=== PATIENT | female | born 1985 | race Caucasian/White ===

== ENCOUNTER 2022-05-01 02:03 | Emergency (ER) | payer MEDICAID ==
[~2022-05-01] VITALS: Ht 152.4 cm; Wt 50.0 kg
[2022-05-01] MEDS ORDERED: diphenhydrAMINE 25mg capsule PO ONE (07:25)
[2022-05-01] MEDS ORDERED: predniSONE 20 mg tablet PO ONE (07:25)
[2022-05-01] MEDS ORDERED: famotidine 20mg tablet PO ONE (07:25)
[2022-05-01 07:50] VITALS: BP 124/74
[2022-05-01] MEDS ORDERED: EPIN0.3P3 IM (09:49)
[2022-05-01] MEDS ORDERED: PRED20TA PO (09:49)
== END 2022-05-01 10:04 | disposition home or self-care (01) ==
LOC: ER 02:04
DX: T78.1XXA Other adverse food reactions, not elsewhere classified, initial encounter (principal); L50.0 Allergic urticaria; R21 Rash and other nonspecific skin eruption; F17.200 Nicotine dependence, unspecified, uncomplicated; Z79.899 Other long term (current) drug therapy
CPT/HCPCS: 99284; J7512; Q0163

== ENCOUNTER 2023-12-12 13:50 | Emergency (ER) | payer MEDICAID ==
[~2023-12-12] VITALS: Ht 157.5 cm; Wt 63.6 kg
[~2023-12-12 13:50] MED LIST: EPIN0.3P3 IM
[2023-12-12 14:22] VITALS: TEMP 98.1
[2023-12-12 15:06] VITALS: BP 120/81; PULSE 85; O2SAT 98
[2023-12-12 15:09] VITALS: RESP 19
== END 2023-12-12 16:16 | disposition home or self-care (01) ==
LOC: ER 13:51
DX: O26.893 Other specified pregnancy related conditions, third trimester (principal); F11.10 Opioid abuse, uncomplicated; Z3A.32 32 weeks gestation of pregnancy
CPT/HCPCS: 99281